=== PATIENT | female | born 1940 | race Caucasian/White ===

== ENCOUNTER 2022-03-06 18:18 | Emergency (ER) | payer MEDICARE, BC ==
[2022-03-06 19:32] LABS: #Basophils 0.1 thou/uL (0.0-0.2); #Eosinphils 0.2 thou/uL (0.0-0.7); #Lymphocytes 1.9 thou/uL (1.20-3.40); #Monocytes 0.8 thou/uL (0.11-0.59); #Neutrophils 9.5 thou/uL (1.40-6.50); %Basophils 0.5 % (0.0-1.0); %Eosinophils 1.9 % (0.0-10.0); %Lymphocytes 15.5 % (21.0-51.0); %Monocytes 6.2 % (0.0-10.0); %Neutrophils 75.9 % (42.0-75.0); Hemoglobin 13.5 g/dL (12.0-16.0); Mean Corpuscular HGB CONC 33.7 g/dL (32.0-36.0); Mean Corpuscular Hemoglobin 33.8 pg (27.0-31.0); Mean Platelet Volume 6.6 fL (7.4-10.4); Platelet Count 216 thou/uL (130-400); RBC Distribution Width 13.3 % (11.5-14.5); White Blood Cell (WBC) Count 12.5 thou/uL (4.8-10.8)
[2022-03-06 19:54] LABS: ALT (SGPT) 31 U/L (8-55); AST (SGOT) 41 U/L (5-34); Albumin 3.3 g/dL (3.4-4.8); Alkaline Phosphatase 158 U/L (40-110); Anion Gap 13 mmol/L (10-20); BUN (Urea Nitrogen) 8 mg/dL (9.8-20.1); Bilirubin, Total 0.7 mg/dL (0.2-1.2); CK (CPK) 92 U/L (29-168); Calc. Creatinine Clearance 0 mL/min (70-130); Calcium 8.8 mg/dL (7.8-10.44); Carbon Dioxide 30 mmol/L (23-31); Chloride 90 mmol/L (98-107); Estimated GFR 67; Globulin 2.9 g/dL (2.4-3.5); Glucose 112 mg/dL (83-110); Magnesium 1.2 mg/dL (1.6-2.6); Potassium 3.8 mmol/L (3.5-5.1); Protein, Total 6.2 g/dL (5.8-8.1); Sodium 129 mmol/L (136-145)
[2022-03-06] MEDS ORDERED: Acetaminophen 500 MG TAB ONE (20:00)
[2022-03-06] MEDS ORDERED: Magnesium 2 GM/50 ML BAG (IN WATER) ONE (20:18)
[2022-03-06] MEDS ORDERED: K-Phos Neutral 250 MG TAB PO SCH (20:30)
== END 2022-03-06 22:50 | disposition home or self-care (01) ==
LOC: ERS 18:18
DX: E83.42 Hypomagnesemia (principal); E83.39 Other disorders of phosphorus metabolism; R06.2 Wheezing; I10 Essential (primary) hypertension; F17.210 Nicotine dependence, cigarettes, uncomplicated; Z79.899 Other long term (current) drug therapy
CPT/HCPCS: 36415; 70450; 80053; 82550; 83735; 84100; 85025; 93005; 94640; 96365; J3475; J7620

== ENCOUNTER 2022-03-27 16:18 | Inpatient (IN) | payer MEDICARE, BC ==
[2022-03-27 18:19] LABS: #Eosinphils 0.2 thou/uL (0.0-0.7); #Lymphocytes 2.1 thou/uL (1.20-3.40); #Monocytes 0.9 thou/uL (0.11-0.59); #Neutrophils 8.3 thou/uL (1.40-6.50); %Basophils 0.1 % (0.0-1.0); %Eosinophils 1.9 % (0.0-10.0); %Lymphocytes 17.9 % (21.0-51.0); %Monocytes 8.1 % (0.0-10.0); Hemoglobin 13.6 g/dL (12.0-16.0); Mean Corpuscular HGB CONC 34.4 g/dL (32.0-36.0); Mean Corpuscular Hemoglobin 34.1 pg (27.0-31.0); Mean Corpuscular Volume 99.1 fL (78.0-98.0); Mean Platelet Volume 7.5 fL (7.4-10.4); Platelet Count 244 thou/uL (130-400); RBC Distribution Width 13.3 % (11.5-14.5); White Blood Cell (WBC) Count 11.5 thou/uL (4.8-10.8)
[2022-03-27 18:23] LABS: Bilirubin Negative (Negative); Blood, Urine Negative (Negative); Clarity Clear (Clear); Glucose, Urine (Dipstick) Normal (Negative); Ketone, Urine Negative (Negative); Leukocyte Negative Leu/uL (Negative); Nitrite Negative (Negative); Protein, Urine (Dipstick) Negative (Neg-Trace); Specific Gravity, Urine 1.008 (1.002-1.036); Urobilinogen Normal mg/dL (Less than 2); pH, Urine 5.5 (5.0-9.0)
[2022-03-27 18:40] LABS: ALT (SGPT) 31 U/L (8-55); AST (SGOT) 36 U/L (5-34); Albumin 3.4 g/dL (3.4-4.8); Alkaline Phosphatase 154 U/L (40-110); Anion Gap 15 mmol/L (10-20); BUN (Urea Nitrogen) 6 mg/dL (9.8-20.1); Bilirubin, Total 0.7 mg/dL (0.2-1.2); Calc. Creatinine Clearance 0 mL/min (70-130); Calcium 9.2 mg/dL (7.8-10.44); Carbon Dioxide 27 mmol/L (23-31); Chloride 89 mmol/L (98-107); Estimated GFR 83; Globulin 2.9 g/dL (2.4-3.5); Glucose 91 mg/dL (83-110); Lipase 46 U/L (8-78); Magnesium 2.1 mg/dL (1.6-2.6); Potassium 3.9 mmol/L (3.5-5.1); Protein, Total 6.3 g/dL (5.8-8.1); Sodium 127 mmol/L (136-145)
[2022-03-27] MEDS ORDERED: Morphine 4 MG/ML VIAL ONE (19:15)
[2022-03-27] MEDS ORDERED: Ondansetron PF 4 MG/2 ML Vial ONE (19:21)
[2022-03-27 20:16] VITALS: BMI 27.0
[2022-03-27] MEDS ORDERED: Lorazepam 2 MG/ML VIAL IM PRN (20:50)
[2022-03-27] MEDS ORDERED: Acetaminophen 650 MG Suppository PR PRN (20:50)
[2022-03-27] MEDS ORDERED: Ondansetron ODT 4 MG TAB PO PRN ×2 (20:50)
[2022-03-27] MEDS ORDERED: Ondansetron PF 4 MG/2 ML Vial IVP PRN (20:50)
[2022-03-27] MEDS ORDERED: Lorazepam 1 MG TAB PO PRN (20:50)
[2022-03-27] MEDS ORDERED: Nystatin Powder 15 GM BOT TOP PRN (20:55)
[2022-03-27] MEDS ORDERED: Electrolyte Replacement Protocol 1 EACH FS SCH (21:00)
[2022-03-27] MEDS: Lorazepam 1 MG TAB PO SCH (21:39)
[2022-03-27] MEDS: Thiamine HCl 200 MG/2 ML VIAL SLOW IVP SCH (21:39)
[2022-03-27] MEDS: Sodium Chloride 0.9% 1,000 ML IV SCH (21:39)
[2022-03-27 21:57] LABS: Anion Gap 16 mmol/L (10-20); BUN (Urea Nitrogen) 5 mg/dL (9.8-20.1); Calc. Creatinine Clearance 83 mL/min (70-130); Calcium 8.6 mg/dL (7.8-10.44); Carbon Dioxide 24 mmol/L (23-31); Chloride 94 mmol/L (98-107); Estimated GFR 89; Glucose 98 mg/dL (83-110); Magnesium 1.8 mg/dL (1.6-2.6); Phosphorus 2.3 mg/dL (2.3-4.7); Potassium 3.8 mmol/L (3.5-5.1); Sodium 130 mmol/L (136-145)
[2022-03-27] MEDS ORDERED: Multivit, Therapeutic 1 TAB PO SCH (22:00)
[2022-03-27] MEDS ORDERED: Folic Acid 1 MG TAB PO SCH (22:00)
[2022-03-27 22:24] LABS: Amphetamine Not Detected (NotDetected); Barbiturates Screen Not Detected (NotDetected); Benzodiazepine Screen Detected (NotDetected); Cocaine Metabolite Screen Not Detected (NotDetected); Methadone Not Detected (NotDetected); Methamphetamine Not Detected (NotDetected); Opiate Screen Detected (NotDetected); Oxycodone Screen Not Detected (NotDetected); Phencyclidine (PCP) Not Detected (NotDetected); THC/Cannabinoid Screen Not Detected (NotDetected); Tricyclic Screen Not Detected (NotDetected)
[2022-03-28] MEDS: Sodium Chloride 0.9% 1,000 ML IV SCH (03:30)
[2022-03-28] MEDS: Lorazepam 1 MG TAB PO SCH ×4 (03:31→20:52)
[2022-03-28 07:03] LABS: #Eosinphils 0.3 thou/uL (0.0-0.7); #Lymphocytes 1.1 thou/uL (1.20-3.40); #Monocytes 0.8 thou/uL (0.11-0.59); #Neutrophils 5.4 thou/uL (1.40-6.50); %Basophils 0.3 % (0.0-1.0); %Eosinophils 3.6 % (0.0-10.0); %Lymphocytes 14.7 % (21.0-51.0); %Monocytes 9.8 % (0.0-10.0); %Neutrophils 71.5 % (42.0-75.0); Hemoglobin 13.1 g/dL (12.0-16.0); Mean Corpuscular HGB CONC 32.8 g/dL (32.0-36.0); Mean Corpuscular Hemoglobin 33.3 pg (27.0-31.0); Mean Platelet Volume 7.4 fL (7.4-10.4); Platelet Count 217 thou/uL (130-400); RBC Distribution Width 13.4 % (11.5-14.5); Red Blood Cell (RBC) Count 3.95 mill/uL (4.20-5.40); White Blood Cell (WBC) Count 7.6 thou/uL (4.8-10.8)
[2022-03-28 07:28] LABS: Anion Gap 15 mmol/L (10-20); BUN (Urea Nitrogen) 4 mg/dL (9.8-20.1); Calc. Creatinine Clearance 82 mL/min (70-130); Calcium 8.7 mg/dL (7.8-10.44); Carbon Dioxide 25 mmol/L (23-31); Chloride 95 mmol/L (98-107); Estimated GFR 89; Glucose 107 mg/dL (83-110); Potassium 3.7 mmol/L (3.5-5.1); Sodium 131 mmol/L (136-145)
[2022-03-28] MEDS ORDERED: Magnesium 2 GM/50 ML(in water) 2 GM in Premix Bag 1 BAG IVPB SCH (08:00)
[2022-03-28] MEDS: Multivit, Therapeutic 1 TAB PO SCH (08:05)
[2022-03-28] MEDS: Folic Acid 1 MG TAB PO SCH (08:06)
[2022-03-28] MEDS: Enoxaparin Sodium 40 MG/0.4 ML SYRINGE SC SCH (08:06)
[2022-03-28] MEDS: Acetaminophen 325 MG TAB PO PRN ×2 (16:53→20:53)
[2022-03-28] MEDS: Thiamine HCl 200 MG/2 ML VIAL SLOW IVP SCH (20:52)
[2022-03-28] MEDS: Lorazepam 1 MG TAB PO PRN (22:08)
[2022-03-29] MEDS: Lorazepam 1 MG TAB PO SCH ×3 (02:10→15:10)
[2022-03-29] MEDS: Lorazepam 1 MG TAB PO PRN ×2 (03:59→12:22)
[2022-03-29 07:16] LABS: Anion Gap 13 mmol/L (10-20); BUN (Urea Nitrogen) Less than 4 mg/dL (9.8-20.1); Calc. Creatinine Clearance 84 mL/min (70-130); Calcium 8.6 mg/dL (7.8-10.44); Carbon Dioxide 24 mmol/L (23-31); Chloride 97 mmol/L (98-107); Estimated GFR 89; Glucose 101 mg/dL (83-110); Magnesium 1.8 mg/dL (1.6-2.6); Potassium 3.8 mmol/L (3.5-5.1); Sodium 130 mmol/L (136-145)
[2022-03-29] MEDS: Folic Acid 1 MG TAB PO SCH (07:53)
[2022-03-29] MEDS: Enoxaparin Sodium 40 MG/0.4 ML SYRINGE SC SCH (07:53)
[2022-03-29] MEDS: Multivit, Therapeutic 1 TAB PO SCH (07:54)
[2022-03-29] MEDS ORDERED: Magnesium 2 GM/50 ML(in water) 2 GM in Premix Bag 1 BAG IVPB SCH (08:00)
[2022-03-29] MEDS ORDERED: Nicotine 21 MG PATCH TD SCH (10:00)
[2022-03-29] MEDS: Nicotine 21 MG PATCH TD SCH (10:19)
[2022-03-29] MEDS ORDERED: methylPREDNISolone Sod Succ 40 MG VIAL IVP SCH (10:45)
[2022-03-29] MEDS ORDERED: Lorazepam 1 MG TAB PO PRN (20:50)
[2022-03-29] MEDS: methylPREDNISolone Sod Succ 40 MG VIAL IVP SCH (21:06)
[2022-03-29] MEDS: Thiamine HCl 200 MG/2 ML VIAL SLOW IVP SCH (21:06)
[2022-03-29] MEDS: Acetaminophen 325 MG TAB PO PRN (21:06)
[2022-03-29] MEDS: Lorazepam 0.5 MG TAB PO SCH (21:07)
[2022-03-29] MEDS: Pramipexole Di-HCl 0.25 MG TAB PO SCH (22:42)
[2022-03-30] MEDS: Lorazepam 0.5 MG TAB PO SCH ×3 (03:39→15:02)
[2022-03-30 07:08] LABS: #Basophils 0.1 thou/uL (0.0-0.2); #Lymphocytes 1.3 thou/uL (1.20-3.40); #Monocytes 0.3 thou/uL (0.11-0.59); #Neutrophils 9.6 thou/uL (1.40-6.50); %Basophils 0.8 % (0.0-1.0); %Eosinophils 0.1 % (0.0-10.0); %Lymphocytes 11.2 % (21.0-51.0); %Neutrophils 84.9 % (42.0-75.0); Hemoglobin 12.4 g/dL (12.0-16.0); Mean Corpuscular HGB CONC 32.7 g/dL (32.0-36.0); Mean Corpuscular Hemoglobin 33.3 pg (27.0-31.0); Platelet Count 235 thou/uL (130-400); RBC Distribution Width 13.2 % (11.5-14.5); Red Blood Cell (RBC) Count 3.72 mill/uL (4.20-5.40); White Blood Cell (WBC) Count 11.3 thou/uL (4.8-10.8)
[2022-03-30 07:24] LABS: Anion Gap 13 mmol/L (10-20); BUN (Urea Nitrogen) 4 mg/dL (9.8-20.1); Calc. Creatinine Clearance 90 mL/min (70-130); Calcium 8.9 mg/dL (7.8-10.44); Carbon Dioxide 25 mmol/L (23-31); Chloride 97 mmol/L (98-107); Estimated GFR 91; Glucose 136 mg/dL (83-110); Potassium 3.6 mmol/L (3.5-5.1); Sodium 131 mmol/L (136-145)
[2022-03-30] MEDS: OLANZapine 5 MG TAB PO SCH (08:53)
[2022-03-30] MEDS: Enoxaparin Sodium 40 MG/0.4 ML SYRINGE SC SCH (08:53)
[2022-03-30] MEDS: Multivit, Therapeutic 1 TAB PO SCH (08:53)
[2022-03-30] MEDS: Folic Acid 1 MG TAB PO SCH (08:53)
[2022-03-30] MEDS: methylPREDNISolone Sod Succ 40 MG VIAL IVP SCH (08:54)
[2022-03-30] MEDS: Nicotine 21 MG PATCH TD SCH (08:55)
[2022-03-30] MEDS: Acetaminophen 325 MG TAB PO PRN ×4 (09:04→21:44)
[2022-03-30] MEDS ORDERED: Magnesium Citrate 300 ML BOT PO SCH (15:15)
[2022-03-30] MEDS ORDERED: Iopamidol-370 76% 500 ML 1 ML ONE (15:19)
[2022-03-30] MEDS ORDERED: GASTROGRAFIN 30 ML BOT ONE (15:19)
[2022-03-30] MEDS: DULoxetine 60 MG CAP PO SCH (20:33)
[2022-03-30] MEDS: Metoprolol Tartrate 25 MG TAB PO SCH (20:34)
[2022-03-30] MEDS: Pramipexole Di-HCl 0.25 MG TAB PO SCH (20:34)
[2022-03-30] MEDS: Docusate 100 MG CAP PO SCH (20:34)
[2022-03-30] MEDS ORDERED: Lorazepam 0.5 MG TAB PO PRN (20:50)
[2022-03-30] MEDS ORDERED: Thiamine 100 MG TAB PO SCH (21:00)
[2022-03-30] MEDS ORDERED: Zolpidem Tartrate 5 MG TAB PO PRN (21:59)
[2022-03-31 06:59] LABS: Anion Gap 13 mmol/L (10-20); BUN (Urea Nitrogen) 6 mg/dL (9.8-20.1); Calc. Creatinine Clearance 92 mL/min (70-130); Calcium 9.1 mg/dL (7.8-10.44); Carbon Dioxide 26 mmol/L (23-31); Chloride 95 mmol/L (98-107); Estimated GFR 91; Glucose 79 mg/dL (83-110); Potassium 3.4 mmol/L (3.5-5.1); Sodium 131 mmol/L (136-145)
[2022-03-31] MEDS: Docusate 100 MG CAP PO SCH (08:40)
[2022-03-31] MEDS: Metoprolol Tartrate 25 MG TAB PO SCH (08:41)
[2022-03-31] MEDS: OLANZapine 5 MG TAB PO SCH (08:41)
[2022-03-31] MEDS: Folic Acid 1 MG TAB PO SCH (08:41)
[2022-03-31] MEDS: Multivit, Therapeutic 1 TAB PO SCH (08:41)
[2022-03-31] MEDS: DULoxetine 60 MG CAP PO SCH (08:41)
[2022-03-31] MEDS: Nicotine 21 MG PATCH TD SCH (08:42)
[2022-03-31] MEDS: Enoxaparin Sodium 40 MG/0.4 ML SYRINGE SC SCH (08:42)
[2022-03-31] MEDS ORDERED: Escitalopram Oxalate 20 mg Tablet PO SCH (09:00)
[2022-03-31] MEDS ORDERED: Magnesium Oxide 400 MG TAB PO SCH (09:00)
[2022-03-31] MEDS: Acetaminophen 325 MG TAB PO PRN (11:11)
[2022-03-31 12:04] VITALS: BP 150/84; TEMP 97.6
[2022-03-31] MEDS ORDERED: ALPRAZolam 0.25 MG TAB PO PRN (13:25)
[2022-03-31] MEDS ORDERED: Potassium Chloride 20 MEQ TAB PO SCH (14:15)
== END 2022-03-31 16:26 | disposition home health service (06) | DRG 897 ==
LOC: ERS 16:18 → T4-B 18:41
PROVIDERS: ADMIT Internal Medicine; ATTEND Internal Medicine
DX: F10.229 Alcohol dependence with intoxication, unspecified (principal); E87.1 Hypo-osmolality and hyponatremia; R29.6 Repeated falls; Z20.822 Contact with and (suspected) exposure to COVID-19; E83.42 Hypomagnesemia; R26.81 Unsteadiness on feet; F17.210 Nicotine dependence, cigarettes, uncomplicated; Z79.899 Other long term (current) drug therapy; Z93.3 Colostomy status
CPT/HCPCS: 36415; 71045; 72170; 74018; 74177; 80048; 80306; 82607; 83605; 83690; 83735; 83930; 84100; 84484; 85025; 87077; 87086; 87186; 93005; 94640; J1650; J2270; J2405; J2920; J3411; J3475; J7050; J7620; Q9963; Q9967; U0003; U0005

== ENCOUNTER 2022-09-10 15:47 | Inpatient (IN) | payer MEDICARE, BC ==
[2022-09-10] MEDS ORDERED: Acetaminophen 325 MG TAB PO PRN (18:15)
[2022-09-10] MEDS ORDERED: Guaifenesin DM 100-10/5 ML UDCUP PO PRN (18:15)
[2022-09-10] MEDS ORDERED: Azithromycin 500 MG in Sodium Chloride 0.9% 250 ML 250 ML IVPB SCH (18:15)
[2022-09-10] MEDS ORDERED: Ipratropium/Albuterol 3 ML NEB NEB PRN (18:15)
[2022-09-10] MEDS ORDERED: ALPRAZolam 0.25 MG TAB PO PRN (18:22)
[2022-09-10 18:57] VITALS: BMI 25.8
[2022-09-10] MEDS: Ipratropium/Albuterol 3 ML NEB NEB SCH (19:27)
[2022-09-10] MEDS: Doxycycline 100 MG CAP PO SCH (21:54)
[2022-09-10] MEDS: DULoxetine 60 MG CAP PO SCH (21:54)
[2022-09-10] MEDS: Pramipexole Di-HCl 0.25 MG TAB PO SCH (21:54)
[2022-09-10] MEDS: traZODone HCl 50 MG TAB PO PRN (21:55)
[2022-09-10] MEDS: Metoprolol Tartrate 25 MG TAB PO SCH (21:55)
[2022-09-10] MEDS: Nicotine 21 MG PATCH TD SCH (21:55)
[2022-09-11] MEDS: methylPREDNISolone Sod Succ 40 MG VIAL IVP SCH ×3 (00:24→11:39)
[2022-09-11] MEDS: Ipratropium/Albuterol 3 ML NEB NEB SCH ×4 (00:48→19:08)
[2022-09-11 06:33] LABS: #Lymphocytes 0.9 thou/uL (1.20-3.40); #Monocytes 0.4 thou/uL (0.11-0.59); #Neutrophils 13.9 thou/uL (1.40-6.50); %Basophils 0.1 % (0.0-1.0); %Eosinophils 0.1 % (0.0-10.0); %Lymphocytes 6.2 % (21.0-51.0); %Monocytes 2.4 % (0.0-10.0); %Neutrophils 91.3 % (42.0-75.0); Hemoglobin 12.9 g/dL (12.0-16.0); Mean Corpuscular HGB CONC 34.5 g/dL (32.0-36.0); Mean Corpuscular Hemoglobin 33.9 pg (27.0-31.0); Mean Corpuscular Volume 98.2 fl (78.0-98.0); Mean Platelet Volume 7.1 fL (7.4-10.4); Platelet Count 205 10x3/uL (130-400); RBC Distribution Width 12.3 % (11.5-14.5); Red Blood Cell (RBC) Count 3.81 mill/uL (4.20-5.40); White Blood Cell (WBC) Count 15.2 10x3/uL (4.8-10.8)
[2022-09-11 06:59] LABS: Anion Gap 12 mmol/L (10-20); BUN (Urea Nitrogen) 11 mg/dL (9.8-20.1); Calc. Creatinine Clearance 63 mL/min (70-130); Calcium 9.4 mg/dL (7.8-10.44); Carbon Dioxide 23 mmol/L (23-31); Chloride 99 mmol/L (98-107); Estimated GFR 74; Glucose 249 mg/dL (83-110); Potassium 3.6 mmol/L (3.5-5.1); Sodium 130 mmol/L (136-145)
[2022-09-11] MEDS: DULoxetine 60 MG CAP PO SCH ×2 (08:32→20:08)
[2022-09-11] MEDS: Folic Acid 1 MG TAB PO SCH (08:32)
[2022-09-11] MEDS: OLANZapine 5 MG TAB PO SCH (08:33)
[2022-09-11] MEDS: Cholecalciferol 1,000 UNITS (25 MCG) TAB PO SCH (08:33)
[2022-09-11] MEDS: Doxycycline 100 MG CAP PO SCH ×2 (08:33→20:08)
[2022-09-11] MEDS: Magnesium Oxide 400 MG TAB PO SCH (08:33)
[2022-09-11] MEDS: Multivit, Therapeutic 1 TAB PO SCH (08:33)
[2022-09-11] MEDS: Escitalopram Oxalate 20 mg Tablet PO SCH (08:33)
[2022-09-11] MEDS: Metoprolol Tartrate 25 MG TAB PO SCH ×2 (08:34→20:08)
[2022-09-11] MEDS ORDERED: cefTRIAXone\\ROCEPHIN 1 GM in Sodium Chloride 0.9% 100 ML IVPB SCH (15:00)
[2022-09-11] MEDS: Nicotine 21 MG PATCH TD SCH (17:35)
[2022-09-11] MEDS: Pramipexole Di-HCl 0.25 MG TAB PO SCH (20:07)
[2022-09-11] MEDS: traZODone HCl 50 MG TAB PO PRN (20:08)
[2022-09-11] MEDS: ALPRAZolam 0.25 MG TAB PO PRN (20:08)
[2022-09-11] MEDS: Cefdinir 300 MG CAP PO SCH (20:08)
[2022-09-11] MEDS ORDERED: Melatonin 3 MG TAB PO PRN (23:54)
[2022-09-12] MEDS: Ipratropium/Albuterol 3 ML NEB NEB SCH ×2 (00:06→07:09)
[2022-09-12] MEDS ORDERED: Docusate 100 MG CAP PO SCH ×2 (04:45→09:00)
[2022-09-12] MEDS ORDERED: predniSONE 20 MG TAB PO SCH (08:00)
[2022-09-12] MEDS: Magnesium Oxide 400 MG TAB PO SCH (08:46)
[2022-09-12] MEDS: OLANZapine 5 MG TAB PO SCH (08:46)
[2022-09-12] MEDS: Folic Acid 1 MG TAB PO SCH (08:46)
[2022-09-12] MEDS: Escitalopram Oxalate 20 mg Tablet PO SCH (08:46)
[2022-09-12] MEDS: Doxycycline 100 MG CAP PO SCH (08:46)
[2022-09-12] MEDS: Cefdinir 300 MG CAP PO SCH (08:46)
[2022-09-12] MEDS: DULoxetine 60 MG CAP PO SCH (08:47)
[2022-09-12] MEDS: Metoprolol Tartrate 25 MG TAB PO SCH (08:47)
[2022-09-12] MEDS: Multivit, Therapeutic 1 TAB PO SCH (08:48)
[2022-09-12] MEDS: Cholecalciferol 1,000 UNITS (25 MCG) TAB PO SCH (08:49)
[2022-09-12] MEDS: ALPRAZolam 0.25 MG TAB PO PRN (08:53)
[2022-09-12 11:46] VITALS: BP 129/63; TEMP 97.8
== END 2022-09-12 13:21 | disposition home or self-care (01) | DRG 192 ==
LOC: T4-A 15:47 → OBSVTOIN 09-11 14:45
PROVIDERS: ADMIT Family Medicine; ATTEND Hospitalist
DX: J44.1 Chronic obstructive pulmonary disease with (acute) exacerbation (principal); I10 Essential (primary) hypertension; F41.9 Anxiety disorder, unspecified; G25.81 Restless legs syndrome; K21.9 Gastro-esophageal reflux disease without esophagitis; J44.9 Chronic obstructive pulmonary disease, unspecified; F17.210 Nicotine dependence, cigarettes, uncomplicated; K43.9 Ventral hernia without obstruction or gangrene; Z79.899 Other long term (current) drug therapy; Z98.890 Other specified postprocedural states; Z90.710 Acquired absence of both cervix and uterus
CPT/HCPCS: 36415; 80048; 85025; 94640; 96372; 96374; 96376; G0378; J1650; J2920; J7512; J7620

== ENCOUNTER 2023-12-04 15:10 | Inpatient (IN) | payer MEDICARE, BC ==
[2023-12-04 15:50] LABS: #Basophils 0.03 10x3/uL (0.0-0.2); %Basophils 0.2 % (0.0-1.0); %Eosinophils 0.3 % (0.0-10.0); %Lymphocytes 14.3 % (21.0-51.0); %Monocytes 8.7 % (0.0-10.0); Hematocrit 37.9 % (36.0-47.0); Hemoglobin 12.5 g/dL (12.0-16.0); Mean Corpuscular Hemoglobin 31.1 pg (27.0-31.0); Mean Corpuscular Volume 94.3 fL (78.0-98.0); Mean Platelet Volume 9.4 fL (7.4-10.4); Platelet Count 244 10x3/uL (130-400); RBC Distribution Width 12.9 % (11.5-14.5); Red Blood Cell (RBC) Count 4.02 mill/uL (4.20-5.40)
[2023-12-04 16:21] LABS: Globulin 3.2 g/dL (2.4-3.5)
[2023-12-04 16:25] LABS: ALT (SGPT) 12 U/L (8-55); AST (SGOT) 17 U/L (5-34); Albumin 2.6 g/dL (3.4-4.8); Alkaline Phosphatase 91 U/L (40-110); Anion Gap 14 mmol/L (10-20); BUN (Urea Nitrogen) 10 mg/dL (9.8-20.1); Bilirubin, Total 0.4 mg/dL (0.2-1.2); Calc. Creatinine Clearance 0 mL/min (70-130); Calcium 8.3 mg/dL (7.8-10.44); Carbon Dioxide 25 mmol/L (23-31); Chloride 99 mmol/L (98-107); Estimated GFR 89; Glucose 101 mg/dL (83-110); Lipase 15 U/L (8-78); Potassium 3.1 mmol/L (3.5-5.1); Protein, Total 5.8 g/dL (5.8-8.1); Sodium 135 mmol/L (136-145)
[2023-12-04 16:34] LABS: Troponin I 0.013 ng/mL (< 0.028)
[2023-12-04 17:28] LABS: Bacteria/HPF 4+ HPF (None Seen); Bilirubin Negative (Negative); Blood, Urine Trace (Negative); CAUTI Indications for Culture Pelvic or flank pain; Clarity Extra Turbid (Clear); Glucose, Urine (Dipstick) Normal (Negative); Ketone, Urine Negative (Negative); Leukocyte 500 Leu/uL (Negative); Nitrite 2+ (Negative); Protein, Urine (Dipstick) 30 mg/dL (Neg-Trace); RBC/HPF None Seen HPF (0-3); Specific Gravity, Urine 1.019 (1.002-1.036); Squamous Epithelial None Seen HPF (0-3); Urobilinogen 12 mg/dL (Less than 2); WBC/HPF Greater than 50 HPF (0-3); pH, Urine 6.5 (5.0-9.0)
[2023-12-04 17:30] LABS: Urine Culture Reflex Yes Yes
[2023-12-04] MEDS ORDERED: Acetaminophen 500 MG TAB ONE (18:12)
[2023-12-04] MEDS ORDERED: Potassium Chloride 20 MEQ TAB ONE (18:12)
[2023-12-04] MEDS ORDERED: Sodium Chloride 0.9% 100 ML ONE (18:13)
[2023-12-04] MEDS ORDERED: Cefepime 2 GM VIAL ONE (18:13)
[2023-12-04] MEDS ORDERED: Vancomycin 1 GM/200 ML (FROZEN) BAG ONE (18:13)
[2023-12-04] MEDS ORDERED: Electrolyte Replacement Protocol 1 EACH FS SCH (18:30)
[2023-12-04] MEDS: Lorazepam 2 MG/ML VIAL IM PRN (20:49)
[2023-12-04] MEDS: Ondansetron PF 4 MG/2 ML Vial IVP PRN (20:51)
[2023-12-04] MEDS: Thiamine HCl 200 MG/2 ML VIAL SLOW IVP SCH (20:51)
[2023-12-04] MEDS: Piperacillin/Tazobactam 3.375 GM in Sodium Chloride 0.9% 100 ML IVPB SCH (20:53)
[2023-12-04] MEDS: Potassium Chloride 20 MEQ TAB PO SCH (21:49)
[2023-12-04] MEDS: Multivit, Therapeutic 1 TAB PO SCH (21:49)
[2023-12-04] MEDS: Folic Acid 1 MG TAB PO SCH (21:49)
[2023-12-04] MEDS: Nicotine 21 MG PATCH TD SCH (21:53)
[2023-12-04 22:10] VITALS: BMI 27.7
[2023-12-05] MEDS: Piperacillin/Tazobactam 3.375 GM in Sodium Chloride 0.9% 100 ML IVPB SCH (00:44)
[2023-12-05 05:09] LABS: #Basophils 0.03 10x3/uL (0.0-0.2); %Basophils 0.2 % (0.0-1.0); %Eosinophils 0.8 % (0.0-10.0); %Lymphocytes 18.4 % (21.0-51.0); %Monocytes 9.2 % (0.0-10.0); Hematocrit 35.2 % (36.0-47.0); Hemoglobin 11.8 g/dL (12.0-16.0); Mean Corpuscular HGB CONC 33.5 g/dL (32.0-36.0); Mean Corpuscular Hemoglobin 31.6 pg (27.0-31.0); Mean Corpuscular Volume 94.1 fL (78.0-98.0); Mean Platelet Volume 9.3 fL (7.4-10.4); Platelet Count 218 10x3/uL (130-400); RBC Distribution Width 12.8 % (11.5-14.5); Red Blood Cell (RBC) Count 3.74 mill/uL (4.20-5.40)
[2023-12-05 05:45] LABS: Anion Gap 14 mmol/L (10-20); BUN (Urea Nitrogen) 9 mg/dL (9.8-20.1); Calc. Creatinine Clearance 90 mL/min (70-130); Calcium 8.1 mg/dL (7.8-10.44); Carbon Dioxide 23 mmol/L (23-31); Chloride 102 mmol/L (98-107); Estimated GFR 90; Glucose 114 mg/dL (83-110); Potassium 3.5 mmol/L (3.5-5.1); Sodium 135 mmol/L (136-145)
[2023-12-05] MEDS: Lorazepam 1 MG TAB PO PRN (08:25)
[2023-12-05] MEDS: Multivit, Therapeutic 1 TAB PO SCH (08:27)
[2023-12-05] MEDS: Potassium Chloride 20 MEQ TAB PO SCH (08:27)
[2023-12-05] MEDS: Folic Acid 1 MG TAB PO SCH (08:28)
[2023-12-05] MEDS: Enoxaparin 40 MG (0.4 mL) SYRINGE SC SCH (08:30)
[2023-12-05] MEDS ORDERED: Nicotine 14 MG PATCH TD PRN (09:07)
[2023-12-05] MEDS ORDERED: Electrolyte Replacement Protocol FS PRN (10:15)
[2023-12-05] MEDS ORDERED: Iopamidol 370 76% 100 ML VIAL ONE (11:18)
[2023-12-05] MEDS: Acetaminophen 325 MG TAB PO PRN (11:39)
[2023-12-05] MEDS: Lorazepam 2 MG/ML VIAL SLOW IVP SCH ×2 (13:02→20:10)
[2023-12-05] MEDS: Morphine 4 MG/ML VIAL SLOW IVP PRN (17:28)
[2023-12-05] MEDS: NS 0.9% w/ 40 MEQ KCL 1,000 ML IV SCH (20:12)
[2023-12-05] MEDS: Pantoprazole 40 MG VIAL IVP SCH (20:12)
[2023-12-05] MEDS: Mometasone 200 MCG/Formoterol 5 MCG 120 PUFF INHALER INH SCH (20:31)
[2023-12-05] MEDS ORDERED: Pramipexole Di-HCl 0.25 MG TAB PO SCH (21:00)
[2023-12-05] MEDS ORDERED: Non-Formulary Item 1 EACH (Timolol Maleate/Pf [Timolol Maleate 0.5% Eye Drop] 1 EACH Drop OP SCH (21:00)
[2023-12-05] MEDS: Senokot S 8.6-50 MG TAB PO SCH (21:50)
[2023-12-05] MEDS: Pramipexole Di-HCl 0.25 MG TAB PO SCH (21:50)
[2023-12-05] MEDS: DULoxetine 60 MG CAP PO SCH (21:51)
[2023-12-05] MEDS: traZODone HCl 50 MG TAB PO PRN (23:42)
[2023-12-05] MEDS: ALPRAZolam 0.25 MG TAB PO PRN (23:43)
[2023-12-06] MEDS: Lorazepam 1 MG TAB PO PRN (02:23)
[2023-12-06 05:21] LABS: #Basophils 0.05 10x3/uL (0.0-0.2); #Eosinphils Less than 0.03 10x3/uL (0.0-0.7); %Basophils 0.3 % (0.0-1.0); %Eosinophils 0.1 % (0.0-10.0); %Lymphocytes 10.7 % (21.0-51.0); %Monocytes 6.1 % (0.0-10.0); %Neutrophils 82.3 % (42.0-75.0); Hematocrit 38.2 % (36.0-47.0); Hemoglobin 12.9 g/dL (12.0-16.0); Mean Corpuscular HGB CONC 33.8 g/dL (32.0-36.0); Mean Corpuscular Hemoglobin 30.9 pg (27.0-31.0); Mean Corpuscular Volume 91.6 fL (78.0-98.0); Mean Platelet Volume 9.3 fL (7.4-10.4); Platelet Count 275 10x3/uL (130-400); RBC Distribution Width 13.1 % (11.5-14.5); Red Blood Cell (RBC) Count 4.17 mill/uL (4.20-5.40)
[2023-12-06 05:39] LABS: Anion Gap 13 mmol/L (10-20); BUN (Urea Nitrogen) 12 mg/dL (9.8-20.1); Calc. Creatinine Clearance 82 mL/min (70-130); Calcium 8.8 mg/dL (7.8-10.44); Carbon Dioxide 26 mmol/L (23-31); Chloride 102 mmol/L (98-107); Estimated GFR 88; Glucose 113 mg/dL (83-110); Potassium 3.9 mmol/L (3.5-5.1); Sodium 137 mmol/L (136-145)
[2023-12-06] MEDS ORDERED: Pantoprazole DR 40 MG TAB PO SCH (09:00)
[2023-12-06] MEDS: Lisinopril 5 MG TAB PO SCH (11:07)
[2023-12-06] MEDS: Loratadine 10 MG TAB PO SCH (11:07)
[2023-12-06 11:43] LABS: ALT (SGPT) 14 U/L (8-55); AST (SGOT) 23 U/L (5-34); Albumin 2.4 g/dL (3.4-4.8); Alkaline Phosphatase 86 U/L (40-110); Bilirubin, Direct 0.2 mg/dL (0.1-0.3); Bilirubin, Total 0.5 mg/dL (0.2-1.2); Protein, Total 5.4 g/dL (5.8-8.1)
[2023-12-06 13:01] LABS: Lactic Acid 1.6 mmol/L (0.5-2.2)
[2023-12-06] MEDS: Ondansetron ODT 4 MG TAB PO PRN (14:44)
[2023-12-06] MEDS: Timolol 0.5% Ophth Soln 5 ml Bottle EA EYE SCH (17:03)
[2023-12-06] MEDS ORDERED: Lorazepam 1 MG TAB PO PRN (18:20)
[2023-12-06] MEDS: Latanoprost 0.005% Ophth Soln 2.5 ml Bottle EA EYE SCH (18:57)
[2023-12-06] MEDS: Ondansetron ODT 4 MG TAB PO SCH (23:44)
[2023-12-06] MEDS ORDERED: Ondansetron PF 4 MG/2 ML Vial IVP PRN (23:47)
[2023-12-07 04:13] LABS: Hematocrit 36.9 % (36.0-47.0); Hemoglobin 12.1 g/dL (12.0-16.0); Mean Corpuscular HGB CONC 32.8 g/dL (32.0-36.0); Mean Corpuscular Hemoglobin 31.6 pg (27.0-31.0); Mean Corpuscular Volume 96.3 fL (78.0-98.0); Mean Platelet Volume 9.4 fL (7.4-10.4); Platelet Count 291 10x3/uL (130-400); RBC Distribution Width 13.2 % (11.5-14.5); Red Blood Cell (RBC) Count 3.83 mill/uL (4.20-5.40)
[2023-12-07 04:31] LABS: Anion Gap 15 mmol/L (10-20); BUN (Urea Nitrogen) 13 mg/dL (9.8-20.1); Calc. Creatinine Clearance 86 mL/min (70-130); Carbon Dioxide 25 mmol/L (23-31); Chloride 101 mmol/L (98-107); Estimated GFR 89; Glucose 108 mg/dL (83-110); Potassium 3.4 mmol/L (3.5-5.1); Sodium 138 mmol/L (136-145)
[2023-12-07 05:13] LABS: Band 6 % (5-11); Lymphocytes 4 % (21-51); Monocytes 5 % (0-10); Neutrophil 85 % (42-75); Platelet Adequacy Comment Platelets Normal; Polychromasia SLIGHT = 2-3 cells HPF (0-2)
[2023-12-07] MEDS: Ipratropium/Albuterol 3 ML NEB NEB PRN (05:19)
[2023-12-07 08:10] LABS: Actual Bicarbonate (HCO3a) 23.9 mEq/L (22-28); Base Excess (BEa) -4.4 mEq/L (-2.0 to +3.0); CO2 Tension 58.4 mmHg (35.0-45.0); Calcium, Ionized (arterial) 1.21 mmol/L (1.12-1.30); Carboxyhemoglobin (COHb) 0.6 gm% (0.0-3.0); Hematocrit-ABG 40 % (36.0-47.0); Hemoglobin (Hb) 13.5 g/dL (12.0-16.0); O2 Tension (PaO2), arterial 299.7 mmHg (> 60.0); Potassium - ABG Lab 3.94 mmol/L (3.70-5.30)
[2023-12-07 08:11] LABS: Puncture Site Right Radial
[2023-12-07 08:35] LABS: Lactic Acid 1.7 mmol/L (0.5-2.2)
[2023-12-07 09:08] LABS: ALT (SGPT) 14 U/L (8-55); AST (SGOT) 22 U/L (5-34); Albumin 2.5 g/dL (3.4-4.8); Alkaline Phosphatase 91 U/L (40-110); Bilirubin, Direct 0.2 mg/dL (0.1-0.3); Bilirubin, Total 0.5 mg/dL (0.2-1.2); Lipase 16 U/L (8-78); Protein, Total 6.1 g/dL (5.8-8.1)
[2023-12-07] MEDS: Sodium Chloride 0.9% 500 ML IV SCH (10:03)
[2023-12-07] MEDS: Lorazepam 2 MG/ML VIAL SLOW IVP SCH (10:03)
[2023-12-07] MEDS: Potassium Chloride 20 MEQ TAB PO SCH (10:05)
[2023-12-07] MEDS ORDERED: Dexmedetomidine In 0.9 % NaCl 100 ML IVPB SCH (13:00)
[2023-12-07] MEDS: Ipratropium/Albuterol 3 ML NEB NEB SCH (13:12)
[2023-12-07] MEDS: Sodium Chloride 0.45% 1,000 ML IV SCH (13:17)
[2023-12-07] MEDS ORDERED: Iopamidol-370 76% 500 ML MDV (1 ML CHARGE) ONE (13:32)
[2023-12-07] MEDS ORDERED: methylPREDNISolone Sod Succ 40 MG VIAL IVP SCH (18:00)
[2023-12-07] MEDS ORDERED: Lorazepam 0.5 MG TAB PO PRN (18:20)
[2023-12-07] MEDS ORDERED: Thiamine 100 MG TAB PO SCH (18:30)
[2023-12-07] MEDS: methylPREDNISolone Sod Succ 40 MG VIAL IVP SCH (19:08)
[2023-12-07] MEDS: ALPRAZolam 0.25 MG TAB PO SCH (21:27)
[2023-12-07 21:54] LABS: Lactic Acid 1.7 mmol/L (0.5-2.2)
[2023-12-07 21:57] LABS: Anion Gap 19 mmol/L (10-20); BUN (Urea Nitrogen) 19 mg/dL (9.8-20.1); Calc. Creatinine Clearance 68 mL/min (70-130); Calcium 8.9 mg/dL (7.8-10.44); Carbon Dioxide 22 mmol/L (23-31); Chloride 100 mmol/L (98-107); Estimated GFR 75; Glucose 136 mg/dL (83-110); Potassium 3.6 mmol/L (3.5-5.1); Sodium 137 mmol/L (136-145)
[2023-12-08] MEDS: Lorazepam 2 MG/ML VIAL SLOW IVP PRN (04:42)
[2023-12-08 05:29] LABS: #Basophils Less than 0.03 10x3/uL (0.0-0.2); #Eosinphils Less than 0.03 10x3/uL (0.0-0.7); %Basophils 0.1 % (0.0-1.0); %Lymphocytes 9.1 % (21.0-51.0); %Monocytes 2.6 % (0.0-10.0); %Neutrophils 87.5 % (42.0-75.0); Hematocrit 29.9 % (36.0-47.0); Hemoglobin 9.8 g/dL (12.0-16.0); Mean Corpuscular HGB CONC 32.8 g/dL (32.0-36.0); Mean Corpuscular Hemoglobin 31.4 pg (27.0-31.0); Mean Corpuscular Volume 95.8 fL (78.0-98.0); Mean Platelet Volume 9.7 fL (7.4-10.4); Platelet Count 247 10x3/uL (130-400); RBC Distribution Width 13.2 % (11.5-14.5); Red Blood Cell (RBC) Count 3.12 mill/uL (4.20-5.40)
[2023-12-08 06:03] LABS: ALT (SGPT) 11 U/L (8-55); AST (SGOT) 19 U/L (5-34); Albumin 1.9 g/dL (3.4-4.8); Alkaline Phosphatase 66 U/L (40-110); Anion Gap 15 mmol/L (10-20); BUN (Urea Nitrogen) 22 mg/dL (9.8-20.1); Bilirubin, Total 0.4 mg/dL (0.2-1.2); Calc. Creatinine Clearance 72 mL/min (70-130); Calcium 8.2 mg/dL (7.8-10.44); Carbon Dioxide 22 mmol/L (23-31); Chloride 102 mmol/L (98-107); Estimated GFR 78; Glucose 130 mg/dL (83-110); Magnesium 1.2 mg/dL (1.6-2.6); Potassium 3.2 mmol/L (3.5-5.1); Protein, Total 4.9 g/dL (5.8-8.1); Sodium 136 mmol/L (136-145)
[2023-12-08] MEDS ORDERED: Potassium Chloride 20 MEQ TAB PO SCH (08:00)
[2023-12-08] MEDS: Potassium Chloride 40 MEQ in Premix 1 BAG IVPB SCH (08:28)
[2023-12-08] MEDS: Magnesium Sulfate In Water 4 GM in Premix 1 BAG IVPB SCH (08:28)
[2023-12-08] MEDS ORDERED: CEFAZOLIN 2 GM in Sodium Chloride 0.9% 100 ML IVPB SCH (12:15)
[2023-12-08] MEDS ORDERED: PROPOFOL 200 MG/20 ML VIAL ONE (13:43)
[2023-12-08] MEDS ORDERED: Lidocaine 1% PF 5 ML VIAL ONE (13:43)
[2023-12-08] MEDS ORDERED: Midazolam HCl 2 mg/2 ml Vial ONE (18:49)
[2023-12-08] MEDS ORDERED: Ketamine In 0.9 % NaCl 50 MG/5 ML SYRINGE ONE (18:49)
[2023-12-08 23:12] VITALS: BP 103/57
[2023-12-09] MEDS: ALPRAZolam 0.25 MG TAB PO PRN (03:45)
[2023-12-09 04:09] LABS: #Basophils Less than 0.03 10x3/uL (0.0-0.2); #Eosinphils Less than 0.03 10x3/uL (0.0-0.7); %Basophils 0.1 % (0.0-1.0); %Lymphocytes 7.3 % (21.0-51.0); %Monocytes 4.3 % (0.0-10.0); %Neutrophils 87.6 % (42.0-75.0); Hemoglobin 10.1 g/dL (12.0-16.0); Mean Corpuscular HGB CONC 33.7 g/dL (32.0-36.0); Mean Corpuscular Hemoglobin 31.3 pg (27.0-31.0); Mean Corpuscular Volume 92.9 fL (78.0-98.0); Mean Platelet Volume 9.7 fL (7.4-10.4); Platelet Count 281 10x3/uL (130-400); Red Blood Cell (RBC) Count 3.23 mill/uL (4.20-5.40)
[2023-12-09] MEDS: Hydrocodone-Acetamin 15 ML UDCUP PER TUBE PRN (06:01)
[2023-12-09 07:52] VITALS: TEMP 97.4
[2023-12-09] MEDS: Morphine 4 MG/ML VIAL SLOW IVP PRN (10:54)
== END 2023-12-09 17:39 | disposition hospice, home (50) | DRG 871 ==
LOC: ERS 15:10 → MSONC 17:51 → IMCU/EMU 12-07 08:49
PROVIDERS: ADMIT Internal Medicine; ATTEND Internal Medicine
PROC: 02H633Z Insertion of Infusion Device into Right Atrium, Percutaneous Approach (ICD-10-PCS; principal; 2023-12-04)
PROC: 0DH63UZ Insertion of Feeding Device into Stomach, Percutaneous Approach (ICD-10-PCS; 2023-12-07)
DX: A41.51 Sepsis due to Escherichia coli [E. coli] (principal); J69.0 Pneumonitis due to inhalation of food and vomit; J96.01 Acute respiratory failure with hypoxia; N39.0 Urinary tract infection, site not specified; K43.3 Parastomal hernia with obstruction, without gangrene; J44.0 Chronic obstructive pulmonary disease with (acute) lower respiratory infection; J44.1 Chronic obstructive pulmonary disease with (acute) exacerbation; F10.10 Alcohol abuse, uncomplicated; H40.9 Unspecified glaucoma; Z66 Do not resuscitate; K29.80 Duodenitis without bleeding; I10 Essential (primary) hypertension; F17.210 Nicotine dependence, cigarettes, uncomplicated; E66.9 Obesity, unspecified; Z79.899 Other long term (current) drug therapy; Z79.82 Long term (current) use of aspirin; Z79.84 Long term (current) use of oral hypoglycemic drugs; Z90.710 Acquired absence of both cervix and uterus; Z93.3 Colostomy status; Z90.49 Acquired absence of other specified parts of digestive tract; Z68.29 Body mass index [BMI] 29.0-29.9, adult; D64.9 Anemia, unspecified; E87.6 Hypokalemia; Z51.5 Encounter for palliative care
CPT/HCPCS: 36415; 71045; 74018; 74177; 80048; 80053; 80076; 81001; 82805; 83605; 83690; 83735; 83880; 84484; 85025; 87040; 87077; 87086; 87186; 87338; 92960; 93005; 93010; 94660; C9113; J0692; J0780; J1650; J2060; J2250; J2270; J2405; J2543; J2704; J2920; J3370-JW; J3411; J3475; J3480; J3490; J7620; Q0162; Q9967